=== PATIENT | male | born 1960 | race Caucasian/White ===

== ENCOUNTER 2021-08-01 10:50 | Outpatient (REF) | payer OTHER, SELFPAY ==
--- NOTE | ~2021-08-01 | XR_ITS ---
EXAMINATION: XR chest 2V CLINICAL INFORMATION: Reason for Exam R05.9 - Cough, unspecified COMPARISON: No prior chest x-ray available in our system for comparison at the time of this dictation. TECHNIQUE: XR chest 2V Lungs and Yaritza: Both lungs are clear. Pleura: Normal. Costophrenic angles are sharp. No pneumothorax. Heart: The heart is normal in size. Mediastinum: The mediastinum is within normal limits.. Bones: Skeletal structures included are normal for patient's age. XR/XR chest 2V IMPRESSION: Normal chest x-ray.
[2021-08-01 13:25] LABS: Influenza A PCR NEGATIVE (Negative); Influenza B PCR NEGATIVE (Negative); Resp Syncy Virus RNA Qual PCR NEGATIVE (Negative); SARS COV2 PCR INHOUSE POSITIVE (Negative)
== END 2021-08-01 10:51 | disposition home or self-care (01) ==
LOC: HO.HMGCX 10:50
PROVIDERS: PCP Nurse Practitioner Family; Visit Provider Physician Assistant Medical
DX: R05.9 Cough, unspecified (principal); Z20.822 Contact with and (suspected) exposure to COVID-19
CPT/HCPCS: 0241U; 71046

== ENCOUNTER 2021-11-27 08:36 | Outpatient (REF) | payer OTHER, SELFPAY ==
[2021-11-27 11:22] LABS: MANUAL DIFF FLAG NO
[2021-11-27 11:38] LABS: Basophils Percent Auto 0.8 % (0-2); Eosinophils Absolute Auto 0.2 X10*3/uL (0.0-0.4); Eosinophils Percent Auto 4.1 % (0-4); Hemoglobin 14.1 g/dl (14.0-18.0); Imm Gran Abs Auto 0.01 X10*3/uL (0.00-0.03); Imm Gran Pct Auto 0.2 % (0.0-0.4); Lymphocytes Absolute Auto 1.4 X10*3/uL (1.2-4.9); Lymphocytes Percent Auto 29.2 % (20-40); Mean Corpuscular HGB Conc 33.6 g/dl (31.0-36.0); Mean Corpuscular Hemoglobin 29.9 pg (27.0-33.0); Mean Platelet Volume 9.8 fL (9.4-12.4); Monocytes Absolute Auto 0.7 X10*3/uL (0.1-1.2); Monocytes Percent Auto 13.5 % (2-11); Neutrophils Absolute Auto 2.6 x10*3/uL (2.0-8.3); Neutrophils Percent Auto 52.2 % (45-73); Platelet Count 198 X10*3/uL (160-400); Red Blood Count 4.72 X10*6/uL (4.60-5.80); Red Cell Distribution Width 12.2 % (11.0-16.0); White Blood Count 4.9 X10*3/uL (4.8-10.8)
[2021-11-27 12:29] LABS: Appearance Urine CLEAR; Color Urine YELLOW; Glucose Urine UA NEG (NEG); Leukocyte Esterase Urine NEG (NEG); Nitrite Urine NEG (NEG); PH 6.5 (5.0-8.0); Urine Blood NEG (NEG); Urine Ketones NEG (NEG); Urine Protein NEG (NEG-TRACE)
[2021-11-27 12:48] LABS: Alanine Aminotransferase 23 U/L (0-40); Alkaline Phosphatase 64 U/L (39-117); Anion Gap 9 (12-20); Aspartate Amino Transferase 21 U/L (5-37); Bilirubin Total 0.8 mg/dL (0.0-1.0); Blood Urea Nitrogen 19 mg/dL (9-16); Carbon Dioxide 29 mmol/L (22-29); Chloride 104 mmol/L (96-108); Cholesterol 198 mg/dL; Estimated Glomerular Filt Rate > 60; Glucose Fasting 92 mg/dL (60-99); HDL Cholesterol 91 mg/dL; LDL Cholesterol Calculated 101 mg/dl; Potassium 4.3 mmol/L (3.3-5.1); Sodium 138 mmol/L (135-145); TSH reflex Free T4 1.26 uIU/mL (0.32-4.0); Total Protein 6.5 g/dL (6.5-8.0); Triglycerides 34 mg/dL
[2021-12-02 13:41] LABS: Testosterone, Total 651 ng/dL (250-1100)
== END 2021-11-27 08:37 | disposition home or self-care (01) ==
LOC: HO.HMGCLDS 08:36
PROVIDERS: Visit Provider Nurse Practitioner Family
DX: Z00.00 Encounter for general adult medical examination without abnormal findings (principal); Z13.220 Encounter for screening for lipoid disorders; Z13.29 Encounter for screening for other suspected endocrine disorder; Z12.5 Encounter for screening for malignant neoplasm of prostate
CPT/HCPCS: 36415; 80053; 80061; 81003; 84153; 84403; 84443; 85025

== ENCOUNTER → 2022-04-16 10:31 | Outpatient (BNVA) | payer OTHER, SELFPAY | PROVIDERS: PCP Nurse Practitioner Family; Visit Provider Nurse Practitioner | DX: Z01.818 Encounter for other preprocedural examination (principal) | CPT/HCPCS: 99202 ==

== ENCOUNTER → 2022-12-18 15:11 | Outpatient (BNVA) | payer OTHER, SELFPAY | PROVIDERS: PCP Nurse Practitioner Family; Visit Provider Urology | DX: N52.2 Drug-induced erectile dysfunction (principal); T43.295A Adverse effect of other antidepressants, initial encounter; T43.595A Adverse effect of other antipsychotics and neuroleptics, initial encounter; F98.8 Other specified behavioral and emotional disorders with onset usually occurring in childhood and adolescence; F31.9 Bipolar disorder, unspecified; Z79.899 Other long term (current) drug therapy | CPT/HCPCS: 99202 ==

== ENCOUNTER 2023-03-05 13:10 | Outpatient (AMB) | payer OTHER, SELFPAY ==
--- NOTE | 2023-03-05 13:24 | A.OFFVIS_ITS ---
Intake Intake Visit Reasons: 2m follow up Intake Note: Patient is present for Follow Up Urology Med:Sildenafil, Tadalafil Antibiotic Allergy:none Blood Thinner: none Pharmacy: [facility] Allergies No Known Allergies Allergy (Verified 12/18/22 15:19) Medication List - Last Reconciled 04/22/23 by Vicente Salagdo MD bupropion HCl 100 mg PO QAM erythromycin 0.5 inches ophthalmic (eye) TID PRN lamotrigine 200 mg PO DAILY peg 3350-electrolytes 236-22.74-6.74 -5.86 gram (Golytely) 240 mL PO Q10M 1 day quetiapine 200 mg PO DAILY sildenafil 50 mg PO DAILY PRN 10 days tadalafil 20 mg PO ONCE PRN 30 days HPI HPI Comments History of Present Illness Details Kristofer is a pleasant male. He is a patient of Dr. Martin. He is seen for the following urologic conditions - erectile dysfunction Good response to on demand medications Erectile dysfunction Progressive over last few years Correlated with starting bipolar medications - bupropion, lamotrigine, Seroquel Good response to on demand Cialis Minimal cardiovascular risk factors - testosterone 650, cholesterol 200, triglycerides 34, HDL 90, cholesterol 100 Six month tele follow-up [facility] Medical History ADD (attention deficit disorder) Bipolar 1 disorder History of COVID-19 Surgical History H/O bilateral inguinal hernia repair H/O colonoscopy History of ear surgery Family History Father Mental health disorder Social History Housing: Apartment Patient Tobacco Use Status: Never used Tobacco e-Cigarette/Vaping Use: Never Used Second Hand Smoke Exposure: No service: No Current occupational status: employed Current occupation: [employer] Current occupational exposures/hazards: No Cognitive needs: No Hearing needs: No Vision needs: No Review of Systems Const Denies chills and Denies fever(s) Card Reports no additional complaints and Denies syncope Resp Denies cough GI Denies abdominal pain and Denies heartburn Reports as per HPI and Denies change in libido Neuro Denies syncope Psych Denies change in libido Endo Denies change in libido Physical Exam Const General: cooperative, healthy appearing, comfortable and no acute distress Orientation/consciousness: patient oriented x3 HEENT Face and sinus: Yes normal facial exam Mouth: moist mucous membranes Neck Neck: Yes normal visual inspection, Yes full ROM and Yes trachea midline Chest Chest palpation & inspection: normal inspection of the chest Resp Effort & Inspection: normal respiratory effort, able to speak in complete sentences and no respiratory distress GI Inspection: Yes normal to inspection Back/Spine/Pelvis Cervical Spine: normal cervical lordosis Thoracic/Lumbar Spine: thoracic and lumbar spine normal to inspection Skin General skin exam: no rashes or lesions noted Neuro General: patient oriented x3, gait normal, tone normal and moves all extremities Extrem General: Yes normal to inspection and Yes capillary refill normal Assessment & Plan Assessment & Plan (1) Erectile dysfunction: Code(s): N52.9 - Male erectile dysfunction, unspecified Qualifiers: Erectile dysfunction type: vasculogenic Vasculogenic erectile dysfunction type: due to arterial insufficiency Qualified Code(s): N52.01 - Erectile dysfunction due to arterial insufficiency Plan Six month follow-up Patient Instructions: Imaging studies, laboratory and physical exam results were discussed and reviewed in detail. No major barriers to patient understanding were identified. An opportunity to ask questions regarding the treatment plan was provided. All questions were answered. The patient expressed understanding and agreement with the above treatment plan. The patient is aware they should contact our office by phone for worsening of their current condition or the appearance of new urologic symptoms. Compliance is encouraged with any medications and followup testing that is ordered. It is a privilege to participate in the urologic care of your patient. If you have any questions or concerns regarding treatment for the above conditions, or other urologic issues, please do not hesitate to contact me. The office telephone contact is [phone]. This note is constructed using voice recognition software. While every effort has been made to ensure accuracy optical instrument assembly supervisor errors may have been included. Yours sincerely, Dr Vicente Salgado MD, [facility] - Urology Providers of Expert, Compassionate Care for the Genitourinary System Coding Level of Care Code Est Pt Level 3 (04108) Diagnoses Erectile dysfunction due to arterial insufficiency N52.01 Erectile dysfunction type: vasculogenic Vasculogenic erectile dysfunction type: due to arterial insufficiency
== END 2023-03-05 13:58 | disposition home or self-care (01) ==
PROVIDERS: Visit Provider Urology
DX: N52.01 Erectile dysfunction due to arterial insufficiency (principal)
CPT/HCPCS: 99213

== ENCOUNTER → 2023-03-05 13:10 | Outpatient (BNVA) | payer OTHER, SELFPAY | PROVIDERS: Visit Provider Urology | DX: N52.2 Drug-induced erectile dysfunction (principal); F31.9 Bipolar disorder, unspecified; F98.8 Other specified behavioral and emotional disorders with onset usually occurring in childhood and adolescence; Z79.899 Other long term (current) drug therapy | CPT/HCPCS: 99212 ==

== ENCOUNTER 2023-09-03 13:50 | Outpatient (AMB) | payer OTHER, SELFPAY ==
--- NOTE | 2023-09-03 13:53 | MHC.OFFVIS ---
Intake Intake Visit Reasons: 6M Follow Up(Erectile Dys) Intake Note: Patient is Present for Telephone Follow Up Urology Med: Patient states that he is not taking both Tadalafil and Sildenafil Antibiotic Allergy: None Blood Thinner: None Allergies No Known Allergies Allergy (Verified 09/03/23 13:53) HPI HPI Comments History of Present Illness Details Kristofer is a pleasant male. He is a patient of Dr. Martin. He is seen for the following urologic conditions - erectile dysfunction Telemedicine Evaluation 15 min Consultation [employer] Adi Video attempted Good response to on demand medications Continue Erectile dysfunction Progressive over last few years Correlated with starting bipolar medications - bupropion, lamotrigine, Seroquel Good response to on demand Cialis Minimal cardiovascular risk factors - testosterone 650, cholesterol 200, triglycerides 34, HDL 90, cholesterol 100 Six month tele follow-up [facility] Medical History History of COVID-19 ADD (attention deficit disorder) Bipolar 1 disorder Surgical History History of ear surgery H/O bilateral inguinal hernia repair H/O colonoscopy Family History Father Mental health disorder Social History Housing: Apartment Patient Tobacco Use Status: Never used Tobacco e-Cigarette/Vaping Use: Never Used Second Hand Smoke Exposure: No service: No Current occupational status: employed Current occupation: speacialized ev Current occupational exposures/hazards: No Cognitive needs: No Hearing needs: No Vision needs: No Review of Systems Const All systems reviewed & are unremarkable except as noted in HPI and below Reports no additional complaints Resp Reports no additional complaints GI Reports no additional complaints Reports as per HPI Musc Reports no additional complaints Physical Exam Telemedicine evaluation Appropriate responses Regular breathing rate and rhythm HEENT Head: Yes normal to inspection Ears: hearing grossly normal bilaterally Eyes General: appearance normal, both eyes and all related structures Neck Neck: Yes normal visual inspection Chest Chest palpation & inspection: normal inspection of the chest Resp Effort & Inspection: normal respiratory effort and able to speak in complete sentences Assessment & Plan Assessment & Plan (1) Erectile dysfunction: Code(s): N52.9 - Male erectile dysfunction, unspecified Qualifiers: Erectile dysfunction type: vasculogenic Vasculogenic erectile dysfunction type: due to arterial insufficiency Qualified Code(s): N52.01 - Erectile dysfunction due to arterial insufficiency Plan Twelve month follow-up Patient Instructions: Imaging studies, laboratory and physical exam results were discussed and reviewed in detail. No major barriers to patient understanding were identified. An opportunity to ask questions regarding the treatment plan was provided. All questions were answered. The patient expressed understanding and agreement with the above treatment plan. The patient is aware they should contact our office by phone for worsening of their current condition or the appearance of new urologic symptoms. Compliance is encouraged with any medications and followup testing that is ordered. It is a privilege to participate in the urologic care of your patient. If you have any questions or concerns regarding treatment for the above conditions, or other urologic issues, please do not hesitate to contact me. The office telephone contact is [phone]. This note is constructed using voice recognition software. While every effort has been made to ensure accuracy dental intern errors may have been included. Yours sincerely, Dr Vicente Salgado MD, [facility] - Urology Providers of Expert, Compassionate Care for the Genitourinary System Telehealth Telehealth Location of provider rendering services: practice address Location of patient: address on file Patient Identification confirmed using: Name, : Yes Telehealth method: video Patient verbally consented to treatment: Yes Patient verbally consented to billing insurance company: Yes Patient informed of any privacy concerns related to visit: Yes Coding Level of Care Code Tele Est Pt Level 3 (58088) Diagnoses Erectile dysfunction due to arterial insufficiency N52.01 Erectile dysfunction type: vasculogenic Vasculogenic erectile dysfunction type: due to arterial insufficiency
== END 2023-09-03 14:29 | disposition home or self-care (01) ==
LOC: HO.HUSH 13:50
PROVIDERS: PCP Nurse Practitioner Family; Visit Provider Urology
DX: N52.01 Erectile dysfunction due to arterial insufficiency (principal)
CPT/HCPCS: 99213

== ENCOUNTER → 2023-09-03 13:50 | Outpatient (BNVA) | payer OTHER, SELFPAY | PROVIDERS: PCP Nurse Practitioner Family; Visit Provider Urology ==

== ENCOUNTER 2024-05-04 14:58 | Outpatient (AMB) | payer OTHER, SELFPAY ==
[2024-05-04 15:01] VITALS: BP 136/80; PULSE 92; O2SAT 95; BMI 25.5
--- NOTE | 2024-05-04 15:01 | A.OFFPC_ITS ---
Vital Signs 05/04/24 15:01 Height 6 ft 1 in Weight 193 lb BMI 25.5 BP 136/80 Blood Pressure Location Lt brachial Position Sitting Pulse 92 Pulse Source Pulse Oximeter Pulse Oximetry (%) 95 Intake Visit Reasons: annual PE Intake Note: pt is here for annual exam Warehouse Analyst Required: No Accompanied by: Self / Same As Patient Allergies No Known Allergies Allergy (Verified 05/04/24 17:05) Medication List - Last Reconciled 05/04/24 by MARLON Ojeda bupropion HCl SR 100 mg PO QAM ketoconazole 2% 1 appl topical DAILY lamotrigine 200 mg PO DAILY quetiapine 200 mg PO DAILY sildenafil 50 mg PO DAILY PRN 10 days tadalafil 20 mg PO ONCE PRN 30 days Tobacco use date assessed: 05/04/24 Dental Screening Dental Screen Date: 05/04/24 Did you have a dental visit in the last 12 months?: Yes Did you have a dental problem in the last 6 months where you did not have access to dental care?: No Was dental information given to patient?: Patient has dentist HPI annual PE HPI Details Pt is here for a PE. Will order labs. Due for colon screen, will refer to GI. Due for PSA, will order. Denies dribbling with urination, weak stream, and frequent nocturia. Pt follows up with urology due to ED. Pt has a possible hydrocele to his right scrotum??. His right testicle is enlarged. Will order US. Refused ANDER. [facility] Medical History History of COVID-19 ADD (attention deficit disorder) Bipolar 1 disorder Surgical History History of ear surgery H/O bilateral inguinal hernia repair H/O colonoscopy Family History Father Mental health disorder Social History Housing: Apartment Patient Tobacco Use Status: Never used Tobacco e-Cigarette/Vaping Use: Never Used Second Hand Smoke Exposure: No service: No Current occupational status: employed Current occupation: speacialized ev Current occupational exposures/hazards: No Cognitive needs: No Hearing needs: No Vision needs: No Questionnaire PHQ-9 Over the last 2 weeks, how often have you been bothered by any of the following problems? 1. Little interest or pleasure in doing things: not at all 2. Feeling down, depressed, or hopeless: not at all 3. Trouble falling or staying asleep, or sleeping too much: not at all 4. Feeling tired or having little energy: not at all 5. Poor appetite or overeating: not at all 6. Feeling bad about yourself - or that you are a failure or have let yourself or your family down: not at all 7. Trouble concentrating on things, such as reading the newspaper or watching television: not at all 8. Moving or speaking so slowly that other people could have noticed. Or the opposite - being so fidgety or restless that you have been moving around a lot more than usual: not at all 9. Thoughts that you would be better off or of hurting yourself in some way: not at all Total score: 0 Depression Screening Interpretation: Negative Depression Screening Done: Yes 67526 - PHQ-9 Billing: Yes Source: Developed by Drs. Shad Oakes, Ariana Aquino, Rafi Bird and colleagues, with an educational bing from [employer]. Thrive Questionnaire Date Thrive assessed: 05/04/24 I am a: Patient What is your living situation today?: I have a steady place to live Within the past 12 months, did the food you bought not last and you didn't have the money to get more?: Never true Within the past 12 months, did you worry whether your food would run out before you got money to buy more?: Never true Do you have trouble paying for medicines?: No Do you have trouble getting transportation to medical appointments?: No Do you have trouble paying your heating and electricity bill?: No Do you have trouble taking care of your child, family member or friend?: No Do you have trouble with day-to-day activities such as bathing, preparing meals, shopping, managing finances, etc.?: No Are you currently unemployed and looking for a job?: No Are you interested in more education?: No Please select the resources that you would like help with: None Currently or been in a relationship where the following occur: No concerns reported THRIVE Score: 0 AUDIT C Alcohol Use Questionnaire (AUDIT-C) 1. How often do you have a drink containing alcohol?: Monthly or less 2. How many drinks containing alcohol do you have on a typical day when you are drinking?: 1 or 2 Total Score: 1 Score Reviewed/Action Taken: Yes GARRETT-7 AMB Questionnaire GARRETT-7 Date GARRETT - 7 assessed: 05/04/24 Feeling nervous, anxious, or on edge: 0 = Not at all Not being able to stop or control worryin = Not at all Worrying too much about different things: 0 = Not at all Trouble relaxin = Not at all Being so restless that it is hard to sit still: 0 = Not at all Becoming easily annoyed or irritable: 0 = Not at all Feeling afraid as if something awful might happen: 0 = Not at all Total GARRETT-7 score (0-4 normal; 5-9 mild; 10-14 moderate; 15-21 severe): 0 Source: Developed by Drs. Shad Oakes, Ariana Aquino, Rafi Bird and colleagues, with an educational bing from [employer]. GARRETT-7 Assessment Billing GARRETT-7 Assessment Tool: GARRETT-7 Assessment 90654 Review of Systems Const Denies chills and Denies fever(s) Eyes Denies blurry vision ENT Denies vertigo, Denies dizziness and Denies sore throat Card Denies chest pain at rest, Denies chest pain with activity, Denies diaphoresis, Denies dyspnea and Denies dyspnea on exertion Resp Denies cough, Denies dyspnea, Denies dyspnea on exertion and Denies wheezing GI Denies abdominal pain, Denies melena, Denies hematochezia, Denies constipation, Denies diarrhea and Denies loose stools Denies hematuria Musc Denies numbness and Denies tingling Skin/Breast Denies lesions Neuro Denies vertigo, Denies dizziness, Denies numbness and Denies tingling Psych Denies anxiety, Denies depression, Denies homicidal ideation, Denies suicidal ideation and Denies other (substance abuse) Aller/Immun Denies wheezing Physical exam (Primary Care) Vital Signs: Last Vital Signs Pulse 92 05/04/24 15:01 BP 136/80 05/04/24 15:01 Pulse Ox 95 05/04/24 15:01 BMI result Body Mass Index 25.5 Tobacco/Smoking Status: Tobacco use Status Tobacco use date assessed 05/04/24 05/04/24 15:02 Patient Tobacco Use Status Never used Tobacco 05/04/24 15:01 e-Cigarette/Vaping Use Never Used 05/04/24 15:01 PHQ-9: PHQ-9 Score PHQ-9: Total score 0 05/04/24 15:02 Depression Screening Interpretation: Negative Thrive Assessment: Date of Thrive Assessment Date Thrive assessed 05/04/24 05/04/24 15:02 Currently or been in a relationship where the following occur: No concerns reported Const General: cooperative Nutritional Appearance: well nourished Orientation/consciousness: patient oriented x3 HENMT Head: Yes normal to inspection, Yes normocephalic and Yes atraumatic Ears: TM's normal bilaterally Eyes General: appearance normal, both eyes and all related structures Alignment and Position: alignment normal and position normal Neck Neck: Yes normal visual inspection, Yes no lymphadenopathy and Yes supple Resp Effort & Inspection: normal respiratory effort Auscultation: clear to auscultation bilaterally Cardio Rate: regular rate Rhythm: regular rhythm Heart sounds: S1 normal heart sound present, S2 normal heart sound present and no murmurs GI Palpation (GI): Soft to palpation and nontender Auscultation: normal bowel sounds Other: right scrotum with ? hydrocele, enlarged right testicle Male General Exam: Yes normal external exam Penis: normal penis Scrotum: testes descended bilaterally and no inguinal hernias Testes: no testicular mass Skin Other: whitich, circular, macular lesions throughout upper chest and upper back/neck (TINEA) Neuro General: patient oriented x3, moves all extremities, no focal motor deficits and deep tendon reflexes 2+ bilaterally Romberg Test: Negative Psych Appearance: grossly normal Mental Status: mental status grossly normal Speech and movement: Normal speech and movement present Affect: normal affect Attitude: cooperative Thought process: Normal thought process present Thought content: Normal thought content present Insight: Good insight present (Psych) Judgement: Good judgement present (Psych) Coding Level of Care Code Est Pt Prev Care 40-64y(28000) Diagnoses Physical exam Z00.00 Screening PSA (prostate specific antigen) Z12.5 Screening for colon cancer Z12.11 Scrotal swelling N50.89 Tinea B35.9 Additional Codes GARRETT-7 Assessment Billing - GARRETT-7 Assessment Tool: GARRETT-7 Assessment 86706 ([id number]) Assessment & Plan Assessment & Plan (1) Physical exam: Code(s): Z00.00 - Encounter for general adult medical examination without abnormal findings Category: Medical Plan: Labs ordered (2) Screening PSA (prostate specific antigen): Code(s): Z12.5 - Encounter for screening for malignant neoplasm of prostate Category: Medical Plan: PSA ordered (3) Screening for colon cancer: Code(s): Z12.11 - Encounter for screening for malignant neoplasm of colon Category: Medical Plan: Referred to GI (4) Scrotal swelling: Code(s): N50.89 - Other specified disorders of the male genital organs Category: Medical Plan: US ordered (5) Tinea: Code(s): B35.9 - Dermatophytosis, unspecified Category: Medical Plan: cream sent Plan The patient agreed to the use of a medical office supervisor for this encounter. Scribed for TIMI Avilez-BC by Shanique Malik medical office supervisor, on 05/04/2024 at 15:15 EST. Orders: Orders Prostate Specific Antigen Scr Today Z12.5 - Encounter for screening for malignant neoplasm of prostate US scrotum Today N50.89 - Other specified disorders of the male genital organs Complete Blood Count Auto Diff Today Z00.00 - Encounter for general adult medical examination without abnormal findings Comprehensive [place]. Panel Fast Today Z00.00 - Encounter for general adult medical examination without abnormal findings TSH reflex Free T4 Today Z00.00 - Encounter for general adult medical examination without abnormal findings UA CC w/rflx Micro + Cult Today Z00.00 - Encounter for general adult medical examination without abnormal findings Lipid Panel Today Z00.00 - Encounter for general adult medical examination without abnormal findings Referrals Gastroenterology Referral Z12.11 - Encounter for screening for malignant neoplasm of colon Medications: New ketoconazole 2% 1 appl topical DAILY 60 grams 0RF
== END 2024-05-04 17:03 | disposition home or self-care (01) ==
PROVIDERS: PCP Nurse Practitioner Family; Visit Provider Nurse Practitioner Family
DX: Z00.00 Encounter for general adult medical examination without abnormal findings (principal); Z12.5 Encounter for screening for malignant neoplasm of prostate; Z12.11 Encounter for screening for malignant neoplasm of colon; N50.89 Other specified disorders of the male genital organs; B35.9 Dermatophytosis, unspecified

== ENCOUNTER → 2024-05-04 14:58 | Outpatient (BNVA) | payer OTHER, SELFPAY | PROVIDERS: PCP Nurse Practitioner Family; Visit Provider Nurse Practitioner Family | DX: Z00.01 Encounter for general adult medical examination with abnormal findings (principal); N50.89 Other specified disorders of the male genital organs; B35.9 Dermatophytosis, unspecified | CPT/HCPCS: 96127; 99396 ==

== ENCOUNTER 2024-05-18 13:49 | Outpatient (REF) | payer OTHER, SELFPAY ==
--- NOTE | ~2024-05-18 | US_ITS ---
EXAMINATION: US SCROTUM CLINICAL INFORMATION: Scrotal swelling. COMPARISON: None available. TECHNIQUE: A sonogram of the scrotum was performed assessing lozoya-scale appearance and color Doppler flow. Spectral Doppler analysis of the arterial and venous flow were performed in the testes bilaterally. FINDINGS: RIGHT: Right testicle measures 3.6 x 2.8 x 3.2 cm, volume 17.0 mL. No focal testicular parenchymal lesions are visualized. Spectral Doppler analysis of the arterial and venous flow is normal in the right testis. Right epididymal head is normal in size. No right varicocele is seen. A large right-sided hydrocele is present with debris. Right epididymal Doppler flow is normal. LEFT: Left testicle measures 4.0 x 2.8 x 2.9 cm, volume 16.7 mL. No focal testicular parenchymal lesions are visualized. Spectral Doppler analysis of the arterial and venous flow is normal in the left testis. Left epididymal head is normal in size. No left varicocele is seen. A large left-sided hydrocele is present with debris. Left epididymal Doppler flow is normal. US/US scrotum IMPRESSION: Large bilateral hydroceles with debris. Normal-appearing testes. Electronically signed by: Anton Kurtz MD 07/15/2024 10:07 AM [facility]
== END 2024-05-18 13:50 | disposition home or self-care (01) ==
LOC: HO.HMGCX 13:49
PROVIDERS: PCP Nurse Practitioner Family; Visit Provider Nurse Practitioner Family
DX: N50.89 Other specified disorders of the male genital organs (principal); S83.412A Sprain of medial collateral ligament of left knee, initial encounter
CPT/HCPCS: 76870; 99212

== ENCOUNTER 2024-05-18 14:22 | Outpatient (AMB) | payer OTHER, SELFPAY ==
--- NOTE | 2024-05-18 14:53 | MHC.OFFWIV ---
Intake Vital Signs 05/18/24 14:54 Height 6 ft 1 in Weight 195 lb BMI 25.7 BP 130/90 H Blood Pressure Location Lt brachial Position Sitting Pulse 75 Pulse Source Pulse Oximeter Pulse Oximetry (%) 98 Oxygen Delivery Method Room Air Intake Visit Reasons: EP-lt knee pain Intake Note: Patient here for left knee pain, he states he jumped off the truck dock and heard a crack. Patient Tobacco Use Status: Never used Tobacco Allergies No Known Allergies Allergy (Verified 05/18/24 14:55) Do you need a note to return to daycare/school/sports/work: No HPI HPI Comments History of Present Illness Details Patient is a 64-year-old male complaining of left medial knee pain. He tells me that 2 days ago, he jumped off the back of a loading dock and heard a crack. He states it does feel dramatically better and he has full range of motion but it still hurts in the medial side of his left knee. He denies any numbness or tingling or loss of strength in the leg. [facility] Medical History History of COVID-19 ADD (attention deficit disorder) Bipolar 1 disorder Surgical History History of ear surgery H/O bilateral inguinal hernia repair H/O colonoscopy Family History Father Mental health disorder Social History Housing: Apartment Patient Tobacco Use Status: Never used Tobacco e-Cigarette/Vaping Use: Never Used Second Hand Smoke Exposure: No service: No Current occupational status: employed Current occupation: speacialized ev Current occupational exposures/hazards: No Cognitive needs: No Hearing needs: No Vision needs: No Review of Systems Const All systems reviewed & are unremarkable except as noted in HPI and below Physical Exam Vital Signs: Last Vital Signs Pulse 75 05/18/24 14:54 BP 130/90 H 05/18/24 14:54 Pulse Ox 98 05/18/24 14:54 Oxygen Delivery Method Room Air 05/18/24 14:54 BMI result Body Mass Index 25.7 Const General: cooperative, healthy appearing, comfortable and no acute distress Orientation/consciousness: patient oriented x3 Limitations: no limitations HEENT Head: Yes normal to inspection Resp Effort & Inspection: normal respiratory effort and able to speak in complete sentences Neuro General: patient oriented x3 Extrem Left lower extremity: knee Details: tenderness Location: of the medial joint line, swelling (medial joint line, slight swelling), normal ROM and knee ligament exam normal; no abrasions, no lacerations, no ecchymosis, no crepitus, no deformity and no unusual warmth Assessment & Plan Assessment & Plan (1) Knee MCL sprain: Code(s): S83.419A - Sprain of medial collateral ligament of unspecified knee, initial encounter Qualifiers: Encounter type: initial encounter Laterality: left Qualified Code(s): S83.412A - Sprain of medial collateral ligament of left knee, initial encounter Plan: Please wrapped knee for patient, recommended he use that as much as possible for the next couple of weeks. Recommended resting it and if it hurts, not to do whatever activity it is. Recommended using Aleve and ice. If no improvement in symptoms, he should follow up with his PCP. Plan See above Coding Level of Care Code Est Pt Level 3 (63699) Diagnoses Sprain of medial collateral ligament of left knee, initial encounter S83.412A Encounter type: initial encounter Laterality: left
[2024-05-18 14:54] VITALS: BP 130/90; PULSE 75; O2SAT 98; BMI 25.7
== END 2024-05-18 15:33 | disposition home or self-care (01) ==
PROVIDERS: PCP Nurse Practitioner Family; Visit Provider Physician Assistant
DX: S83.412A Sprain of medial collateral ligament of left knee, initial encounter (principal)

== ENCOUNTER 2024-05-31 15:03 | Outpatient (REF) | payer OTHER, SELFPAY ==
--- NOTE | ~2024-05-31 | XR_ITS ---
EXAMINATION: XR KNEE, LEFT CLINICAL INFORMATION: Knee pain COMPARISON: None available. TECHNIQUE: Four views of the left knee. FINDINGS: No fracture or joint effusion. Alignment is anatomic. Joint spaces are maintained. No abnormal soft tissue calcification. XR/XR knee LT 4V IMPRESSION: Unremarkable study. Electronically signed by: Fidencio Garcia MD 05/31/2024 04:50 PM EDT
== END 2024-05-31 15:04 | disposition home or self-care (01) ==
LOC: HO.HMGCX 15:03
PROVIDERS: PCP Nurse Practitioner Family; Visit Provider Physician Assistant
DX: M25.562 Pain in left knee (principal)
CPT/HCPCS: 73564; 99212

== ENCOUNTER 2024-05-31 15:03 | Outpatient (AMB) | payer OTHER, SELFPAY ==
[2024-05-31 15:05] VITALS: BP 130/90; PULSE 72; O2SAT 98
--- NOTE | 2024-05-31 15:05 | MHC.OFFWIV ---
Intake Vital Signs 05/31/24 15:05 Height 6 ft 1 in BP 130/90 H Blood Pressure Location Rt brachial Position Sitting Pulse 72 Pulse Source Pulse Oximeter Pulse Oximetry (%) 98 Oxygen Delivery Method Room Air Intake Visit Reasons: EP-lt knee pain / work injury Intake Note: pt is here for left knee pain, due to work injury Patient Tobacco Use Status: Never used Tobacco Allergies No Known Allergies Allergy (Verified 05/31/24 15:05) Do you need a note to return to daycare/school/sports/work: No HPI HPI Comments History of Present Illness Details Patient is a 64-year-old male complaining of continued left medial knee pain. Approximately 3 weeks ago, he jumped off the back of a loading dock and heard a crack in his knee. He has been trying to rest it, use ice, Ignacio wrap and ibupofen but it still feels the same, it's not getting better. He denies any numbness or tingling or loss of strength in the leg. [facility] Medical History History of COVID-19 ADD (attention deficit disorder) Bipolar 1 disorder Surgical History History of ear surgery H/O bilateral inguinal hernia repair H/O colonoscopy Family History Father Mental health disorder Social History Housing: Apartment Patient Tobacco Use Status: Never used Tobacco e-Cigarette/Vaping Use: Never Used Second Hand Smoke Exposure: No service: No Current occupational status: employed Current occupation: [employer] Current occupational exposures/hazards: No Cognitive needs: No Hearing needs: No Vision needs: No Review of Systems Const All systems reviewed & are unremarkable except as noted in HPI and below Physical Exam Vital Signs: Last Vital Signs Pulse 72 05/31/24 15:05 BP 130/90 H 05/31/24 15:05 Pulse Ox 98 05/31/24 15:05 Oxygen Delivery Method Room Air 05/31/24 15:05 Const General: cooperative, healthy appearing, comfortable and no acute distress Orientation/consciousness: patient oriented x3 Limitations: no limitations HEENT Head: Yes normal to inspection Resp Effort & Inspection: normal respiratory effort and able to speak in complete sentences Neuro General: patient oriented x3 Extrem Right lower extremity: knee Details: normal to inspection, tenderness Location: of the medial joint line, normal ROM and knee ligament exam normal; no swelling, no abrasions, no lacerations, no ecchymosis, no deformity and no unusual warmth Assessment & Plan Assessment & Plan (1) Knee pain, left: Code(s): M25.562 - Pain in left knee Qualifiers: Chronicity: acute Qualified Code(s): M25.562 - Pain in left knee Plan: Originally seen here in the walk-in and diagnosed with an MCL sprain. He has been doing everything we have asked him to do with rest ice and ibuprofen. He states it does not feel any better. We will get x-rays today and an urgent referral to Orthopedics so that he may be evaluated in the next couple of weeks. Plan See above Orders: Orders XR knee LT 4V Today M25.562 - Pain in left knee Referrals Orthopedics Referral M25.562 - Pain in left knee Coding Level of Care Code Est Pt Level 4 (68689) Diagnoses Acute pain of left knee M25.562 Chronicity: acute
== END 2024-05-31 15:58 | disposition home or self-care (01) ==
PROVIDERS: PCP Nurse Practitioner Family; Visit Provider Physician Assistant
DX: M25.562 Pain in left knee (principal)

== ENCOUNTER 2024-06-20 09:14 | Outpatient (REF) | payer OTHER, SELFPAY | END 2024-06-20 09:15 | disposition home or self-care (01) | LOC: HO.HOSX 09:14 | PROVIDERS: Visit Provider Physician Assistant | DX: M25.562 Pain in left knee (principal); S83.412A Sprain of medial collateral ligament of left knee, initial encounter; M23.92 Unspecified internal derangement of left knee | CPT/HCPCS: 73565; 99202 ==

== ENCOUNTER 2024-06-20 14:51 | Outpatient (AMB) | payer OTHER, SELFPAY ==
--- NOTE | 2024-06-20 14:57 | A.OFFVIS_ITS ---
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 He felt his knee shift and he fell on his back. Patient is having pain on the medial aspect of the knee. No hx of taking pain medication. He mentions that he tried icing, rest and a topical cream with mild relief. 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 The patient presented to [facility] at [place] for a left medial knee pain. The patient reports that he was pulling down the cargo door and twisted his knee falling backwards onto the loading dock. DOI is 05/16/24. His left knee was wrapped with KAYLYNN wrap and recommended to use the wrap as much as possible for a couple of weeks. The patient was recommended rest, Aleve and ice for pain relief. He returned to the Walk-In Clinic on 05/31/24. X-rays of the left knee were obtained on 05/31/24. He continues to report pain along the medial aspect of the knee that is persistent. [facility] Medical History History of COVID-19 ADD (attention deficit disorder) Bipolar 1 disorder Surgical History History of ear surgery H/O bilateral inguinal hernia repair H/O colonoscopy Family History Father Mental health disorder Social History Housing: Apartment Patient Tobacco Use Status: Never used Tobacco e-Cigarette/Vaping Use: Never Used Second Hand Smoke Exposure: No service: No Current occupational status: employed Current occupation: [employer] Current occupational exposures/hazards: No Cognitive needs: No Hearing needs: No Vision needs: No Review of Systems Const All systems reviewed & are unremarkable except as noted in HPI and below Physical Exam Const General: cooperative and no acute distress Orientation/consciousness: patient oriented x3 Resp Effort & Inspection: normal respiratory effort and able to speak in complete sentences Cardio Peripheral pulses: Peripheral pulses 2+ throughout Skin General skin exam: no rashes or lesions noted Neuro General: patient oriented x3 Extrem Other: Left knee: Normal to inspection. No ecchymosis, erythema, or joint effusion. No tenderness to palpation along the medial and lateral joint lines. Full knee extension and flexion. Positive Suzie?s in the medial joint line. Negative anterior drawer. NVI. Assessment & Plan Assessment & Plan (1) Internal derangement of left knee: Code(s): M23.92 - Unspecified internal derangement of left knee Category: Medical Plan 64-year-old female who presents in the office today, as a new patient, for an evaluation of left knee pain. The patient presented to [facility] at [place] for a left medial knee pain. The patient reports that he was pulling down the cargo door and twisted his knee falling backwards onto the loading dock. DOI is 05/16/24. His left knee was wrapped with KAYLYNN wrap and recommended to use the wrap as much as possible for a couple of weeks. The patient was recommended rest, Aleve and ice for pain relief. He returned to the Walk-In Clinic on 05/31/24. X-rays of the left knee were obtained on 05/31/24. He continues to report pain along the medial aspect of the knee that is persistent. I have placed an order for an MRI of the left knee to further evaluate the integrity of the knee and surrounding structures. Follow-up will be after the MRI is obtained, or sooner if needed. X-rays of the left knee, which were obtained while in the office today and were reviewed by me, Sammi Thapa PA-C, revealed: Negative for any acute fracture or dislocation. X-rays of the left knee, obtained on 05/31/24, revealed: No fracture or joint effusion. Alignment is anatomic. Joint spaces are maintained. No abnormal soft tissue calcification. Orders: Orders XR knee standing BI 06/20/24 M25.562 - Pain in left knee, S83.412A - Sprain of medial collateral ligament of left knee, initial encounter MR knee LT wo con Today M23.92 - Unspecified internal derangement of left knee Patient Instructions: Scribed by Heidi De Oliveira medical administrative specialist, for Sammi Thapa PA-C on 06/20/2024 at 3:24 pm EST. Coding Level of Care Code New Pt Level 4 (48103) Diagnoses Internal derangement of left knee M23.92
== END 2024-06-20 15:31 | disposition home or self-care (01) ==
PROVIDERS: PCP Nurse Practitioner Family; Visit Provider Physician Assistant
DX: M23.92 Unspecified internal derangement of left knee (principal)
CPT/HCPCS: 99204

== ENCOUNTER 2024-07-06 14:52 | Outpatient (REF) | payer OTHER, SELFPAY ==
--- NOTE | ~2024-07-06 | MR_ITS ---
EXAMINATION: MR KNEE WITHOUT CONTRAST, LEFT CLINICAL INFORMATION: Internal derangement of left knee. Patient reports pain post injury COMPARISON: None available. TECHNIQUE: MRI of the knee without contrast was performed using routine sequences on a high-field scanner. FINDINGS: MENISCI: Medial Meniscus: There is increased signal within the posterior horn and body meniscus not extending to the articular surface compatible with grade 2 signal. No definite tear. Lateral Meniscus: Intact LIGAMENTS: Cruciate: Intact Collateral: Medial collateral ligament: There is increased signal and thickening of the proximal medial collateral ligament beginning at the femoral attachment and extending to the joint line compatible with a partial tear. EXTENSOR MECHANISM: Intact ARTICULAR CARTILAGE/BONE: Patellofemoral Compartment: Normal Medial Compartment: Normal Lateral Compartment: Normal JOINT FLUID AND BURSAE: Normal MR/MR knee LT wo con IMPRESSION: Partial tear of the proximal medial collateral ligament likely acute or subacute. Electronically signed by: Rebel Jacques MD 07/06/2024 04:08 PM [facility]
== END 2024-07-06 14:53 | disposition home or self-care (01) ==
LOC: HO.MRI 14:52
PROVIDERS: Visit Provider Physician Assistant
DX: M23.92 Unspecified internal derangement of left knee (principal)
CPT/HCPCS: 73721

== ENCOUNTER 2024-07-24 08:29 | Outpatient (AMB) | payer OTHER, SELFPAY ==
--- NOTE | 2024-07-24 08:33 | A.OFFVIS_ITS ---
Intake Visit Reasons: Tele - Left knee MRI review Intake Note: Kristofer is a 64 year old male who presents today for a MRI review of his left knee. Patient states that hos pain hasn't change and it is still constant. Allergies No Known Allergies Allergy (Verified 07/24/24 08:40) HPI HPI Tele - Left knee MRI review: Details: 64-year-old male who presents in the office today for a follow-up of left knee pain and to review MRI of the left knee. The patient pulled down the cargo door and twisted his knee falling backwards onto the loading dock that occurred on 05/16/24. I last saw the patient in the office on 06/20/24, when an MRI of the left knee was ordered to further evaluate the integrity of the knee. While in the office today, the patient reports persistent left knee pain. He states no changes in his pain and has been constant. [facility] Medical History History of COVID-19 ADD (attention deficit disorder) Bipolar 1 disorder Surgical History History of ear surgery H/O bilateral inguinal hernia repair H/O colonoscopy Family History Father Mental health disorder Social History Housing: Apartment Patient Tobacco Use Status: Never used Tobacco e-Cigarette/Vaping Use: Never Used Second Hand Smoke Exposure: No service: No Current occupational status: employed Current occupation: [employer] Current occupational exposures/hazards: No Cognitive needs: No Hearing needs: No Vision needs: No Review of Systems Const All systems reviewed & are unremarkable except as noted in HPI and below Physical Exam Const General: cooperative, healthy appearing and no acute distress Orientation/consciousness: patient oriented x3 Resp Effort & Inspection: normal respiratory effort and able to speak in complete sentences Cardio Rate: regular rate Peripheral pulses: Peripheral pulses 2+ throughout GI Palpation (GI): Soft to palpation Skin General skin exam: no rashes or lesions noted Lesions: no lesions Rashes: no rashes Neuro General: patient oriented x3 Extrem Other: Left knee: Normal to inspection. No ecchymosis, erythema, or joint effusion. No tenderness to palpation along the medial and lateral joint lines. Full knee extension and flexion. Positive Suzie?s in the medial joint line. Negative anterior drawer. NVI. Assessment & Plan Assessment & Plan (1) Internal derangement of left knee: Code(s): M23.92 - Unspecified internal derangement of left knee Category: Medical (2) MCL sprain of left knee: Code(s): S83.412A - Sprain of medial collateral ligament of left knee, initial encounter Category: Medical Plan Ms. Dominguez is a 64-year-old male who presents in the office today for a follow- up of left knee pain and to review MRI of the left knee. The patient pulled down the cargo door and twisted his knee falling backwards onto the loading dock that occurred on 05/16/24. I last saw the patient in the office on 06/20/24, when an MRI of the left knee was ordered to further evaluate the integrity of the knee. While in the office today, the patient reports persistent left knee pain. He states no changes in his pain and has been constant. I have placed a referral to physical therapy today. He was provided with a work note, stating to remain out of work until his follow-up. I have sent the prescription of Celebrex 200 mg PO BID to the pharmacy. Follow-up will be in 4 weeks, or sooner if needed. MRI of the left knee, obtained on 07/06/24, revealed: Partial tear of the proximal medial collateral ligament likely acute or subacute. Orders: Orders PT Evaluation and Treatment 07/24/24 M23.92 - Unspecified internal derangement of left knee, M25.562 - Pain in left knee, S83.412A - Sprain of medial collateral ligament of left knee, initial encounter Medications: New celecoxib (Celebrex) 200 mg PO BID 30 days 60 caps 0RF Patient Instructions: Scribed by Heidi De Oliveira medical safety director, for Sammi Thapa PA-C on 07/24/24 at 9:01 am EST. Coding Level of Care Code Est Pt Level 4 (83621) Diagnoses Internal derangement of left knee M23.92 MCL sprain of left knee S83.412A
== END 2024-07-24 09:04 | disposition home or self-care (01) ==
PROVIDERS: PCP Nurse Practitioner Family; Visit Provider Physician Assistant
DX: M23.92 Unspecified internal derangement of left knee (principal); S83.412A Sprain of medial collateral ligament of left knee, initial encounter
CPT/HCPCS: 99214

== ENCOUNTER → 2024-07-24 08:29 | Outpatient (BNVA) | payer OTHER, SELFPAY | PROVIDERS: PCP Nurse Practitioner Family; Visit Provider Physician Assistant | DX: M23.92 Unspecified internal derangement of left knee (principal); S83.412A Sprain of medial collateral ligament of left knee, initial encounter; X50.3XXA Overexertion from repetitive movements, initial encounter; Y93.9 Activity, unspecified; Y92.63 Factory as the place of occurrence of the external cause; Y99.0 Civilian activity done for income or pay | CPT/HCPCS: 99212 ==

== ENCOUNTER 2024-08-24 12:22 | Outpatient (AMB) | payer OTHER, SELFPAY ==
--- NOTE | 2024-08-24 12:49 | A.OFFVIS_ITS ---
Vital Signs 08/24/24 12:51 Height 6 ft 1 in Weight 195 lb BMI 25.7 Intake Visit Reasons: OV-Left knee follow up 4 WK Intake Note: Kristofer is a 64 year old male who presents today for a follow up of his left knee pain. Patient states he is feeling better since he is going to PT. He notices that his medication is also giving him relief. Allergies No Known Allergies Allergy (Verified 07/24/24 08:40) HPI HPI OV-Left knee follow up 4 WK: Details: Patient presents to the office today for routine follow-up left knee pain and partial medial collateral ligament sprain. Patient is overall doing very well. He started physical therapy roughly 2 weeks ago. His pain has been improving. [facility] Medical History History of COVID-19 ADD (attention deficit disorder) Bipolar 1 disorder Surgical History History of ear surgery H/O bilateral inguinal hernia repair H/O colonoscopy Family History Father Mental health disorder Social History Housing: Apartment Patient Tobacco Use Status: Never used Tobacco e-Cigarette/Vaping Use: Never Used Second Hand Smoke Exposure: No service: No Current occupational status: employed Current occupation: [employer] Current occupational exposures/hazards: No Cognitive needs: No Hearing needs: No Vision needs: No Review of Systems Const All systems reviewed & are unremarkable except as noted in HPI and below Physical Exam Vital Signs: BMI result Body Mass Index 25.7 Const General: cooperative, healthy appearing and no acute distress Orientation/consciousness: patient oriented x3 Resp Effort & Inspection: normal respiratory effort and able to speak in complete sentences Cardio Rate: regular rate Peripheral pulses: Peripheral pulses 2+ throughout GI Palpation (GI): Soft to palpation Skin General skin exam: no rashes or lesions noted Lesions: no lesions Rashes: no rashes Neuro General: patient oriented x3 Extrem Other: Left knee: Normal to inspection. No ecchymosis, erythema, or joint effusion. Full knee extension and flexion. Tenderness to palpation over the MCL. NVI. Assessment & Plan Assessment & Plan (1) Knee MCL sprain: Code(s): S83.419A - Sprain of medial collateral ligament of unspecified knee, initial encounter Category: Medical Qualifiers: Encounter type: initial encounter Laterality: left Qualified Code(s): S83.412A - Sprain of medial collateral ligament of left knee, initial encounter (2) Internal derangement of left knee: Code(s): M23.92 - Unspecified internal derangement of left knee Category: Medical Plan Patient presents to the office today for routine follow-up left knee pain and partial medial collateral ligament sprain. Patient is overall doing very well. He started physical therapy roughly 2 weeks ago. His pain has been improving. Patient would like to resume pickleball activities. I provided him with a gentleman knee brace off the shelf. He was not back to normal activities as tolerated. He will continue to attend physical therapy until all sessions are completed. His follow up with Orthopedics will be p.r.n., sooner if needed. Coding Level of Care Code Est Pt Level 3 (36367) Diagnoses Sprain of medial collateral ligament of left knee, initial encounter S83.412A Encounter type: initial encounter Laterality: left Internal derangement of left knee M23.92
[2024-08-24 12:51] VITALS: BMI 25.7
== END 2024-08-24 14:32 | disposition home or self-care (01) ==
PROVIDERS: PCP Nurse Practitioner Family; Visit Provider Physician Assistant
DX: S83.412D Sprain of medial collateral ligament of left knee, subsequent encounter (principal); M23.92 Unspecified internal derangement of left knee
CPT/HCPCS: 99213

== ENCOUNTER → 2024-08-24 12:22 | Outpatient (BNVA) | payer OTHER, SELFPAY | PROVIDERS: PCP Nurse Practitioner Family; Visit Provider Physician Assistant | DX: S83.412D Sprain of medial collateral ligament of left knee, subsequent encounter (principal); M23.92 Unspecified internal derangement of left knee | CPT/HCPCS: 99212 ==

== ENCOUNTER 2024-10-20 13:30 | Outpatient (AMB) | payer OTHER, SELFPAY ==
--- NOTE | 2024-10-20 13:32 | A.OFFVIS_ITS ---
Intake Visit Reasons: OV- Left knee pain Intake Note: Kristofer is a 64 year old male who presents today for a follow up of his left knee pain. He feels that his pain has improved, he did a short period of physical therapy. They wanted to do more aggressive Physical Therapy & requested this order but he states that they never recieved anything. Allergies No Known Allergies Allergy (Verified 10/20/24 13:34) HPI HPI OV- Left knee pain: Details: Mr. Dominguez is a 64-year-old male who presents to the office today for routine follow-up of left knee pain. He is attending [facility] Physical therapy. He is performing home exercise program. He is looking to return back to work full- time regular duty. [facility] Medical History History of COVID-19 ADD (attention deficit disorder) Bipolar 1 disorder Surgical History History of ear surgery H/O bilateral inguinal hernia repair H/O colonoscopy Family History Father Mental health disorder Social History Housing: Apartment Patient Tobacco Use Status: Never used Tobacco e-Cigarette/Vaping Use: Never Used Second Hand Smoke Exposure: No service: No Current occupational status: employed Current occupation: [employer] Current occupational exposures/hazards: No Cognitive needs: No Hearing needs: No Vision needs: No Review of Systems Const All systems reviewed & are unremarkable except as noted in HPI and below Physical Exam Const General: cooperative, healthy appearing and no acute distress Orientation/consciousness: patient oriented x3 Resp Effort & Inspection: normal respiratory effort and able to speak in complete sentences Cardio Rate: regular rate Peripheral pulses: Peripheral pulses 2+ throughout GI Palpation (GI): Soft to palpation Skin General skin exam: no rashes or lesions noted Lesions: no lesions Rashes: no rashes Neuro General: patient oriented x3 Extrem Other: Left knee: Normal to inspection. No ecchymosis, erythema, or joint effusion. Full knee extension and flexion. Mild tenderness to palpation over the MCL. NVI. Assessment & Plan Assessment & Plan (1) MCL sprain of left knee: Code(s): S83.412A - Sprain of medial collateral ligament of left knee, initial encounter Category: Medical (2) Internal derangement of left knee: Code(s): M23.92 - Unspecified internal derangement of left knee Category: Medical Plan Mr. Dominguez is a 64-year-old male who presents to the office today for routine follow-up of left knee pain. He is attending [facility] Physical therapy. He is performing home exercise program. He is looking to return back to work full- time regular duty. A work note has been provided to the patient and he will follow up p.r.n., sooner if needed. Coding Level of Care Code Est Pt Level 3 (19885) Diagnoses MCL sprain of left knee S83.412A Internal derangement of left knee M23.92
== END 2024-10-20 13:41 | disposition home or self-care (01) ==
LOC: HO.HOS 13:31
PROVIDERS: PCP Nurse Practitioner Family; Visit Provider Physician Assistant
DX: S83.412A Sprain of medial collateral ligament of left knee, initial encounter (principal); M23.92 Unspecified internal derangement of left knee
CPT/HCPCS: 99213

== ENCOUNTER → 2024-10-20 13:30 | Outpatient (BNVA) | payer OTHER, SELFPAY | PROVIDERS: PCP Nurse Practitioner Family; Visit Provider Physician Assistant | DX: S83.412D Sprain of medial collateral ligament of left knee, subsequent encounter (principal); M23.92 Unspecified internal derangement of left knee; X58.XXXD Exposure to other specified factors, subsequent encounter | CPT/HCPCS: 99212 ==

== ENCOUNTER 2025-03-08 09:39 | Outpatient (AMB) | payer OTHER, SELFPAY ==
--- NOTE | 2025-03-08 09:44 | MHC.OFFVIS ---
Vital Signs 03/08/25 09:48 Height 6 ft 1 in Weight 190 lb 14.725 oz BMI 25.2 BP 122/80 Blood Pressure Location Rt brachial Position Sitting Pulse 67 Intake Visit Reasons: colo screen, pt had cxl his colo l/s 04/2022 Intake Note: Patient in office today for colonoscopy screenings. CC: Patient doing well denies having any GI symptoms today. 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 He is referred by Jone Orellana of [facility] primary care. PMX Attention deficit disorder/bipolar disorder Impotence Contact dermatitis * SURGICAL HISTORY bilateral inguinal hernia left knee cartiledge repair Wound debridment rt ear * ALLERGIES: NKDA * [facility] [employer] LABS: None since 2021 TODAY'S VISIT Patient has been lost to follow-up since 11/2021 He had a colonoscopy 10 years ago. There are no significant findings to his memory, he thinks he may have had done at [facility]. ? He denies any bowel or upper GI problems. ? 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 ? He denies any cardiac or respiratory problems ? No Id problems. ? No known FHX CRC . Or polyps. COUNTS INCLUDE 234 BEDS AT THE [facility] Medical History (Updated 03/08/25 @ 10:18 by ROSETTE Barber) Screening PSA (prostate specific antigen) Screening for colon cancer History of COVID-19 ADD (attention deficit disorder) Bipolar 1 disorder Surgical History History of ear surgery H/O bilateral inguinal hernia repair H/O colonoscopy Family History Father Mental health disorder Social History Housing: Apartment Patient Tobacco Use Status: Never used Tobacco e-Cigarette/Vaping Use: Never Used Second Hand Smoke Exposure: No service: No Current occupational status: employed Current occupation: [employer] Current occupational exposures/hazards: No Cognitive needs: No Hearing needs: No Vision needs: No Review of Systems Const Denies fatigue, Denies fever(s), Denies night sweats, Denies poor appetite and Denies weight loss Eyes Details: Glasses Reports requires corrective lenses ENT Reports Normal hearing present, Denies dental pain, Denies dysphagia, Denies hearing loss, Denies mouth pain, Denies odynophagia, Denies throat swelling, Denies tongue swelling and Reports other (Dentition adequate) Card Reports no additional complaints Resp Reports no additional complaints GI Details: Denies abdominal pain, Denies melena, Denies bloating, Denies hematochezia, Denies constipation, Denies GI cramping, Denies dysphagia, Denies excessive flatus, Denies early satiety, Denies heartburn, Denies diarrhea, Denies nausea, Denies odynophagia, Denies vomiting and Denies hematemesis Skin/Breast Denies pruritus, Denies lesions, Denies rash and Denies jaundice Neuro Reports Normal hearing present and Denies Abnormal speech present Endo Denies fatigue Aller/Immun Denies throat swelling and Denies tongue swelling Physical Exam Vital Signs: Last Vital Signs Pulse 67 03/08/25 09:48 BP 122/80 03/08/25 09:48 BMI result Body Mass Index 25.2 Const General: cooperative, no acute distress, well developed and well groomed Nutritional Appearance: well nourished Orientation/consciousness: oriented to person, oriented to place and oriented to time Limitations: No language barrier HEENT Head: Yes normocephalic and Yes atraumatic Eyes General: appearance normal, both eyes and all related structures Pupils: Equal, round and reactive pupils present Neck Neck: Yes normal visual inspection and Yes no lymphadenopathy Thyroid: Thyroid normal Resp Effort & Inspection: normal respiratory effort and able to speak in complete sentences Auscultation: clear to auscultation bilaterally Cardio Rate: regular rate Rhythm: regular rhythm Heart sounds: Normal, physiologic split S2 sound present Peripheral pulses: radial pulses present and posterior tibial pulses present GI Inspection: No distended and No Abdominal panniculus present Palpation (GI): Soft to palpation, nontender, no guarding, not rigid and No hepatosplenomegaly present Percussion: Yes normal to percussion Auscultation: normal bowel sounds Rectal Exam - Male: Yes deferred Skin General skin exam: no rashes or lesions noted, turgor normal, skin not dry, no jaundice, No spider nevi and no striae Rashes: no rashes Nails: normal Neuro General: oriented to person, oriented to place and oriented to time Cranial nerves: Yes Equal, round and reactive pupils present and Yes Normal hearing present Speech: No Abnormal speech present Extrem General: Yes normal to inspection, No clubbing, No cyanosis and No edema Psych Appearance: grossly normal and well kempt Mental Status: mental status grossly normal Speech and movement: Normal speech and movement present Affect: normal affect Attitude: cooperative Thought process: Normal thought process present and not confabulating Thought content: Normal thought content present Insight: Good insight present (Psych) Judgement: Good judgement present (Psych) Assessment & Plan Assessment & Plan (1) Pre-op examination: Code(s): Z01.818 - Encounter for other preprocedural examination Category: Medical (2) Transfusion of blood product declined due to scientology reason: Code(s): Z53.1 - Procedure and treatment not carried out because of patient's decision for reasons of belief and group pressure Category: Medical Plan Patient has been lost to follow-up since 11/2021 He had a colonoscopy 10 years ago. There are no significant findings to his memory, he thinks he may have had done at [facility]. ? He denies any bowel or upper GI problems. ? 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 ? He denies any cardiac or respiratory problems ? No Id problems. ? No known FHX CRC . Or polyps. Orders: Orders Comprehensive Met. Panel Today Z01.818 - Encounter for other preprocedural examination Complete Blood Count Auto Diff Today Z01.818 - Encounter for other preprocedural examination Colonoscopy - GI Use Only Today Z01.818 - Encounter for other preprocedural examination Coding Level of Care Code New Pt Level 3 (78496) Diagnoses Pre-op examination Z01.818 Transfusion of blood product declined due to scientology reason Z53.1
[2025-03-08 09:48] VITALS: BP 122/80; PULSE 67; BMI 25.2
== END 2025-03-08 10:24 | disposition home or self-care (01) ==
LOC: HO.HGI 09:39
PROVIDERS: PCP Nurse Practitioner Family; Visit Provider Nurse Practitioner
DX: Z01.818 Encounter for other preprocedural examination (principal); Z12.11 Encounter for screening for malignant neoplasm of colon; Z53.1 Procedure and treatment not carried out because of patient's decision for reasons of belief and group pressure
CPT/HCPCS: 99212

== ENCOUNTER → 2025-03-08 09:39 | Outpatient (BNVA) | payer OTHER, SELFPAY | PROVIDERS: PCP Nurse Practitioner Family; Visit Provider Nurse Practitioner | DX: Z01.818 Encounter for other preprocedural examination (principal) | CPT/HCPCS: 99212 ==

== ENCOUNTER 2025-03-19 09:33 | Outpatient (REF) | payer OTHER, SELFPAY ==
[2025-03-19 13:18] LABS: MANUAL DIFF FLAG NO
[2025-03-19 13:22] LABS: Hematocrit 40.4 % (42.0-52.0); Hemoglobin 13.9 g/dl (14.0-18.0); Imm Gran Abs Auto 0.01 X10*3/uL (0.00-0.03); Imm Gran Pct Auto 0.2 % (0.0-0.4); Lymphocytes Absolute Auto 1.3 X10*3/uL (1.2-4.9); Mean Corpuscular HGB Conc 34.4 g/dl (31.0-36.0); Mean Corpuscular Hemoglobin 30.7 pg (27.0-33.0); Mean Corpuscular Volume 89.2 fL (80.0-98.0); NRBC Abs Auto 0.000 X10*3/uL (0.0-0.012); NRBC Pct Auto 0.0 /100WBC (0.0-0.2); Platelet Count 195 X10*3/uL (160-400); Red Blood Count 4.53 X10*6/uL (4.60-5.80); White Blood Count 4.9 X10*3/uL (4.8-10.8)
[2025-03-19 13:37] LABS: Alanine Aminotransferase 21 U/L (0-40); Albumin Level 4.2 g/dL (3.5-5.0); Alkaline Phosphatase 65 U/L (39-117); Anion Gap 13 (12-20); Aspartate Amino Transferase 22 U/L (5-37); Blood Urea Nitrogen 25 mg/dL (9-16); Calcium 8.6 mg/dL (8.4-10.2); Carbon Dioxide 25 mmol/L (22-29); Chloride 105 mmol/L (96-108); Estimated Glomerular Filt Rate 54; Potassium 4.1 mmol/L (3.3-5.1); Sodium 139 mmol/L (135-145); Total Protein 6.5 g/dL (6.5-8.0)
== END 2025-03-19 09:34 | disposition home or self-care (01) ==
LOC: HO.HMGCLDS 09:33
PROVIDERS: PCP Nurse Practitioner Family; Visit Provider Nurse Practitioner
DX: Z01.818 Encounter for other preprocedural examination (principal)
CPT/HCPCS: 36415; 80053; 85025

== ENCOUNTER 2025-06-04 09:47 | Outpatient (REF) | payer OTHER, SELFPAY ==
[2025-06-04 13:22] LABS: Alanine Aminotransferase 23 U/L (0-40); Albumin Level 4.1 g/dL (3.5-5.0); Alkaline Phosphatase 70 U/L (39-117); Anion Gap 7 (12-20); Aspartate Amino Transferase 23 U/L (5-37); Blood Urea Nitrogen 20 mg/dL (9-16); Calcium 8.8 mg/dL (8.4-10.2); Carbon Dioxide 31 mmol/L (22-29); Chloride 106 mmol/L (96-108); Estimated Glomerular Filt Rate > 60; Potassium 3.8 mmol/L (3.3-5.1); Sodium 140 mmol/L (135-145); Total Protein 6.4 g/dL (6.5-8.0)
== END 2025-06-04 09:48 | disposition home or self-care (01) ==
LOC: HO.HMGCLDS 09:47
PROVIDERS: PCP Nurse Practitioner Family; Visit Provider Nurse Practitioner Family
DX: R94.4 Abnormal results of kidney function studies (principal); Z12.5 Encounter for screening for malignant neoplasm of prostate
CPT/HCPCS: 36415; 80053; 84153

== ENCOUNTER 2025-06-06 10:57 | Outpatient (AMB) | payer OTHER, SELFPAY ==
[2025-06-06 11:02] VITALS: BP 128/86; PULSE 77; O2SAT 97; BMI 26.1
--- NOTE | 2025-06-06 11:02 | A.OFFPC_ITS ---
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 He reports doing well and denies any chest pain, shortness of breath, abdominal pain, hematochezia, constipation, diarrhea, or urinary symptoms. His prostate- specific antigen (PSA) screen is up to date. Health Maintenance The patient will undergo laboratory testing in the near future. The patient is scheduled for a colon screening this month. The patient has declined all offered vaccinations at this time. Social History Review of Systems - Constitutional: Reports feeling well. - Cardiovascular: Denies chest pain. - Respiratory: Denies shortness of breat h. - Gastrointestinal: Denies abdominal yancy n, hematochezia, constipation, or d iarrhea. - Genitourinary: Denies urinary symptoms . Physical Exam General: Cooperative, healthy appearing, comfortable, no acute distress and well developed Orientation: Patient oriented x3 Limitations: No limitations Head: Normal to inspection Ears: Hearing grossly normal bilaterally Nose: Normal external nose present Face and sinus: Normal facial exam Eyes: Appearance normal, both eyes and all related structures Neck: Normal visual inspection and Yes full ROM Respiratory: Normal respiratory effort and able to speak in complete sentences. Clear to auscultation bilaterally Cardiovascular: Regular rate and rhythm. Normal S1 and S2 GI: Normal to inspection. Soft to palpation and nontender : Testicles without masses/lesions and no hernias appreciated. Denies any urinary symptoms Skin: No rashes or lesions noted Neuro: Patient oriented x3 Extremities: Normal to inspection Results Plan Discussion Notes I advised the patient that his physical exam was benign. We discussed the plan for him to have labs drawn in the near future and to proceed with his colon screening scheduled for this month. I also discussed vaccinations, which he declined. Encouraged continuous hydration Patient Instructions - Please proceed with getting your lab w ork done soon. - Make sure to attend your appointment f or a colon screening this month. - You chose to decline all vaccines toda y. Please let us know if you change your mind in the future. [facility] Medical History Screening PSA (prostate specific antigen) Screening for colon cancer History of COVID-19 ADD (attention deficit disorder) Bipolar 1 disorder Surgical History History of ear surgery H/O bilateral inguinal hernia repair H/O colonoscopy Family History Father Mental health disorder Social History Housing: Apartment Patient Tobacco Use Status: Never used Tobacco e-Cigarette/Vaping Use: Never Used Second Hand Smoke Exposure: No service: No Current occupational status: employed Current occupation: [email or web address] Current occupational exposures/hazards: No Cognitive needs: No Hearing needs: No Vision needs: No Questionnaire PHQ-9 Over the last 2 weeks, how often have you been bothered by any of the following problems? 1. Little interest or pleasure in doing things: not at all 2. Feeling down, depressed, or hopeless: not at all 3. Trouble falling or staying asleep, or sleeping too much: not at all 4. Feeling tired or having little energy: not at all 5. Poor appetite or overeating: not at all 6. Feeling bad about yourself - or that you are a failure or have let yourself or your family down: not at all 7. Trouble concentrating on things, such as reading the newspaper or watching television: not at all 8. Moving or speaking so slowly that other people could have noticed. Or the opposite - being so fidgety or restless that you have been moving around a lot more than usual: not at all 9. Thoughts that you would be better off or of hurting yourself in some way: not at all Total score: 0 Depression Screening Interpretation: Negative Depression Screening Done: Yes 18518 - PHQ-9 Billing: Patient declined-do not bill Source: Developed by Drs. Shad Oakes, Ariana Aquino, Rafi Bird and colleagues, with an educational bing from [employer]. Thrive Questionnaire Date Thrive assessed: 06/06/25 I am a: Patient GARRETT-7 AMB Questionnaire GARRETT-7 Date GARRETT - 7 assessed: 06/06/25 Feeling nervous, anxious, or on edge: 0 = Not at all Not being able to stop or control worryin = Not at all Worrying too much about different things: 0 = Not at all Trouble relaxin = Not at all Being so restless that it is hard to sit still: 0 = Not at all Becoming easily annoyed or irritable: 0 = Not at all Feeling afraid as if something awful might happen: 0 = Not at all Total GARRETT-7 score (0-4 normal; 5-9 mild; 10-14 moderate; 15-21 severe): 0 Source: Developed by Drs. Shad Oakes, Ariana Aquino, Rafi Bird and colleagues, with an educational bing from [employer]. GARRETT-7 Assessment Billing GARRETT-7 Assessment Tool: GARRETT-7 Assessment 13799 Physical exam (Primary Care) Vital Signs: Last Vital Signs Pulse 77 06/06/25 11:02 BP 128/86 06/06/25 11:02 Pulse Ox 97 06/06/25 11:02 Oxygen Delivery Method Room Air 06/06/25 11:02 BMI result Body Mass Index 26.1 Tobacco/Smoking Status: Tobacco use Status Tobacco use date assessed 06/06/25 06/06/25 11:08 Patient Tobacco Use Status Never used Tobacco 06/06/25 11:08 e-Cigarette/Vaping Use Never Used 06/06/25 11:08 PHQ-9: PHQ-9 Score PHQ-9: Total score 0 06/06/25 11:08 Depression Screening Interpretation: Negative Thrive Assessment: Date of Thrive Assessment Date Thrive assessed 06/06/25 06/06/25 11:08 Coding Level of Care Code Est Pt Prev Care 40-64y(16035) Diagnoses Physical exam Z00.00 Additional Codes GARRETT-7 Assessment Billing - GARRETT-7 Assessment Tool: GARRETT-7 Assessment 00757 ([id number]) Assessment & Plan Assessment & Plan (1) Physical exam: Code(s): Z00.00 - Encounter for general adult medical examination without abnormal f indings Category: Medical Plan . Orders: Orders Complete Blood Count Auto Diff Today Z00.00 - Encounter for general adult medical examination without abnormal findings UA CC w/rflx Micro + Cult Today Z00.00 - Encounter for general adult medical examination without abnormal findings Lipid Panel Today Z00.00 - Encounter for general adult medical examination without abnormal findings TSH reflex Free T4 Today Z00.00 - Encounter for general adult medical examination without abnormal findings
== END 2025-06-06 11:35 | disposition home or self-care (01) ==
LOC: HO.HMCC 10:57
PROVIDERS: PCP Nurse Practitioner Family; Visit Provider Nurse Practitioner Family
DX: Z00.00 Encounter for general adult medical examination without abnormal findings (principal)

== ENCOUNTER → 2025-06-06 10:57 | Outpatient (BNVA) | payer OTHER, SELFPAY | PROVIDERS: PCP Nurse Practitioner Family; Visit Provider Nurse Practitioner Family | DX: Z00.00 Encounter for general adult medical examination without abnormal findings (principal); N50.89 Other specified disorders of the male genital organs | CPT/HCPCS: 96127; 99396 ==

== ENCOUNTER 2025-06-13 08:50 | Day surgery (SDC) | payer OTHER, SELFPAY ==
[2025-06-11 14:15] VITALS: BMI 25.1
[2025-06-13 09:33] VITALS: BMI 25.3
[2025-06-13 09:57] VITALS: BP 108/72; PULSE 56; RESP 16; TEMP 36.2; O2SAT 98
[2025-06-13] MEDS: Lactated Ringers 1,000 ML 100 ML IVCONT (09:59)
--- NOTE | 2025-06-13 10:07 | P.HPSUR_ITS ---
Pre-Procedural Eval Section A - 24 Hr Update-Section A only Date of Service: 06/13/25 Section B - Complete if H&P > 30 days Chief Complaint: screening Relevant Family History (Specify if Yes): No Relevant Social History: None Present Medications: see Short Stay Collaborative assessment Medical History: Significant History (Attention deficit disorder/bipolar disorder Impotence Contact dermatitis ) History of Previous Operations: Relevant previous surgery/procedure and date(s) (bilateral inguinal hernia left knee cartiledge repair Wound debridment rt ear) Allergies: Allergies Allergy/AdvReac Type Severity Reaction Status Date / Time No Known Allergies Allergy Verified 06/06/25 11:04 Review of Systems Sugical H&P ROS: Negative: Constitution, Cardiovascular, Respiratory, Neurological, Psychiatric, Hem-Onc, Allergic/Immunologic, Gastrointestinal, Sasha tourinary, Musculoskeletal, Integumentary, Endocrine and Eyes/Ears/Nose/Throat Exam Surgical H&P Exam: Normal: HEENT, Normal: Heart, Normal: Lungs, Normal: Extremities, Normal: Abdomen, Normal: Skin and Normal: Neurological Plan Diagnosis/Plan: Unchanged I have reviewed the history and physical and performed a pertinent physical examination on my patient. No changes have occurred unless specified. Time Spent With Patient Time: Total time managing care of this patient today ____ minutes.
--- NOTE | 2025-06-13 10:42 | HO.ANESPROP2 ---
Documented by User: Jessica Lorenz NP 06/11/25 10:18 HPI - Anesthesia Eval Consult details Narrative: 65 yr old male for colonoscopy PMF Active Problems Active Problems: All Active Problems Screening PSA (prostate specific antigen) (Acute) Decreased GFR (Acute) Transfusion of blood product declined due to holiness reason (Acute) MCL sprain of left knee (Acute) Bilateral hydrocele (Acute) Internal derangement of left knee (Acute) Knee pain, left (Acute) Knee MCL sprain (Acute) Tinea (Acute) Scrotal swelling (Acute) Erectile dysfunction (Acute) Cough (Acute) Physical exam (Acute) Impotence (Acute) Contact dermatitis (Acute) Pre-op examination (Acute) Bipolar 1 disorder (Acute) Anxiety with depression (Acute) Past Medical History Medical History Screening PSA (prostate specific antigen) Screening for colon cancer History of COVID-19 ADD (attention deficit disorder) Bipolar 1 disorder Family History Family History Father Mental health disorder Surgical History Surgical History History of ear surgery H/O bilateral inguinal hernia repair H/O colonoscopy Social History Social History Housing: Apartment Are you a primary home care coordinator to a significant other at home: No Do you presently have visiting nurse or other home services: No Patient Tobacco Use Status: Never used Tobacco e-Cigarette/Vaping Use: Never Used Second Hand Smoke Exposure: No Use of substances other than those prescribed or required for medical reasons: No Have you been hit, kicked, punched, or otherwise hurt by someone within the past year? If so, by whom?: No Are you DNR?: No Advance Directives: No Advance Directives Information Provided: Yes Advance Directives on File: No service: No Current occupational status: employed Current occupation: [employer] Current occupational exposures/hazards: No Cognitive needs: No Hearing needs: No Vision needs: No Meds Allergies Allergy/AdvReac Type Severity Reaction Status Date / Time No Known Allergies Allergy Verified 06/06/25 11:04 Home Medications ?Medication ?Instructions ?Recorded ?Confirmed ?Last Taken ?Type bupropion HCl 100 mg tablet,12 hr 100 mg PO QAM 08/01/21 06/11/25 Unknown History sustained-release lamotrigine 200 mg tablet 200 mg PO DAILY 08/01/21 06/11/25 Unknown History quetiapine 200 mg tablet 200 mg PO DAILY 04/16/22 06/11/25 Unknown History Exam Pertinent Lab Results Pertinent Lab Results: Laboratory Tests 03/19/25 06/04/25 09:37 09:50 WBC 4.9 RBC 4.53 L Hgb 13.9 L Hct 40.4 L Plt Count 195 Sodium 140 Potassium 3.8 Chloride 106 Carbon Dioxide 31 H BUN 20 H Creatinine 1.20 Documented by User: Joann Tanner DO 06/13/25 10:43 PMFSH Past Medical History Medical History Screening PSA (prostate specific antigen) Screening for colon cancer History of COVID-19 ADD (attention deficit disorder) Bipolar 1 disorder Family History Family History Father Mental health disorder Family history of problems with anesthesia: No Surgical History Surgical History History of ear surgery H/O bilateral inguinal hernia repair H/O colonoscopy History of Problems with Anesthesia: No Social History Social History Housing: Apartment Are you a primary home care coordinator to a significant other at home: No Do you presently have visiting nurse or other home services: No Patient Tobacco Use Status: Never used Tobacco e-Cigarette/Vaping Use: Never Used Second Hand Smoke Exposure: No Use of substances other than those prescribed or required for medical reasons: No Have you been hit, kicked, punched, or otherwise hurt by someone within the past year? If so, by whom?: No Are you DNR?: No Advance Directives: No Advance Directives Information Provided: Yes Advance Directives on File: No service: No Current occupational status: employed Current occupation: [employer] Current occupational exposures/hazards: No Cognitive needs: No Hearing needs: No Vision needs: No Meds Allergies Allergy/AdvReac Type Severity Reaction Status Date / Time No Known Allergies Allergy Verified 06/06/25 11:04 Home Medications ?Medication ?Instructions ?Recorded ?Confirmed ?Last Taken ?Type bupropion HCl 100 mg tablet,12 hr 100 mg PO QAM 08/01/21 06/11/25 Unknown History sustained-release lamotrigine 200 mg tablet 200 mg PO DAILY 08/01/21 06/11/25 Unknown History quetiapine 200 mg tablet 200 mg PO DAILY 04/16/22 06/11/25 Unknown History Exam Exam Date and Time: 06/13/25 1040 Height,Weight and Vital Signs: Height 6 ft 1 in Weight 87 kg Vital Signs Temperature 97.2 F 06/13/25 09:57 Pulse Rate 56 06/13/25 09:57 Respiratory Rate 16 06/13/25 09:57 Blood Pressure 108/72 06/13/25 09:57 Pulse Oximetry 98 06/13/25 09:57 Oxygen Delivery Method Room Air 06/13/25 09:57 Temperature 97.2 F 06/13/25 09:57 Pulse Rate 56 06/13/25 09:57 Respiratory Rate 16 06/13/25 09:57 Blood Pressure 108/72 06/13/25 09:57 Pulse Oximetry 98 06/13/25 09:57 Oxygen Delivery Method Room Air 06/13/25 09:57 Airway Mallampati Class: I TM Dist: >3cm Neck ROM: Full Loose/Missing/Broken Teeth: No (patient denies any loose or broken teeth) Heart: S1S2 Lungs: CTAB Assessment and Plan Assessment Anesthesia Assessment: Anesthesia Plan Discussed and Chart Reviewed Final Anesthetic Review Family History of Problems with Anesthesia: No History of Problems with Anesthesia: No NPO: Yes ASA Class: II Final Preanesthetic Review: No Changes in Pt Med Stat, Meds/Allgs Chart Reviewed, Consent Obtained/Reviewed and Anes Risks/Benef Reviewed Patient Risk: Low Procedure Risk: Low Anesthetic Plan Anesthetic Plan: MAC: and Agree w/ Assess. and Plan Disposition: Standard PACU
--- NOTE | 2025-06-13 11:30 | HO.OPN-COLON ---
Colonoscopy Operative Note Operative Note Date of Service: 06/13/25 Narrative: Operative Information Procedure Description: Colonoscopy Indication: screening Anesthesia: MAC COLONOSCOPY Instrument: Olympus variable stiffness pediatric scope 190L Colonoscopy Monitoring: Vital signs and clinical assessment, continuous EKG monitoring, Pulse oximetry, Carbon Dioxide monitoring and blood pressure monitoring were done throughout the procedure. Colon withdrawal time was 30 minutes. Procedure: The patient was placed in the left lateral decubitis position and pre-procedure medications were administered. After a digital rectal examination of the ano-rectum, the video colonoscope was inserted into the rectum and advanced through the colon to the cecum/TI. The colonoscope was slowly withdrawn in a retrograde panoramic fashion and the colon mucosa was carefully examined including a retroflexed view of the rectum. Findings and interventions are described below. Procedure Difficulty: moderate, pressure applied Findings: Terminal Ileum-normal Cecum:normal Ascending Colon: laterla spreading granular lesion noted in mid ascending area about 10-12 mm in diameter, lifted with eleview and then removed with cold snare, with x 2 clips and nexpowder Transverse Colon -normal Descending Colon:normal Sigmoid Colon: 10 mm sessile polyp removed with cold snare Rectum: Retroflexion with small internal hemorrhoids seen, grade I, 10-12 mm lateral spreading granular type polyp lesion, lifted with eleview and removed with cold snare and then sprayed with nexpowder Anorectum - normal Intervention: cold snare, with eleview injection, clips, and nexpowder Colon preparation: [place] Bowel Preparation Scale Right colon; 2 Transverse colon: 2 Left colon; 2 (0 = Unprepared colon segment with mucosa not seen due to solid stool that cannot be cleared. 1 = Portion of mucosa of the colon segment seen, but other areas of the colon segment not well seen due to staining, residual stool and/or opaque liquid. 2 = Minor amount of residual staining, small fragments of stool and/or opaque liquid, but mucosa of colon segment seen well. 3 = Entire mucosa of colon segment seen well with no residual staining, small fragments of stool or opaque liquid) Impression and Post Procedure Diagnosis: colon polyps x3 internal hemorrhoids Plan: High fiber diet leaflet Avoid straining at stool, epsom salts and sitz bath, anusol supps or cream Repeat Colonoscopy in 2-3 years due to subtle polyps or earlier if clinically indicated Above findings were reviewed with the patient and relevant handouts were provided if indicated.
[2025-06-13 11:33] VITALS: BP 124/82; PULSE 57; RESP 15; TEMP 36.6; O2SAT 97
[2025-06-13 11:48] VITALS: BP 126/78; PULSE 60; RESP 16; O2SAT 98
[2025-06-13 12:03] VITALS: BP 126/78; PULSE 61; RESP 20; TEMP 36.6; O2SAT 96
== END 2025-06-13 12:35 | disposition home or self-care (01) ==
PROVIDERS: PCP Nurse Practitioner Family; Visit Provider Internal Medicine Gastroenterology
PROC: 0DJD8ZZ Inspection of Lower Intestinal Tract, Via Natural or Artificial Opening Endoscopic (ICD-10-PCS; CPT 45378; principal; 2025-06-13 11:00)
DX: Z12.11 Encounter for screening for malignant neoplasm of colon (principal); K64.0 First degree hemorrhoids; D12.2 Benign neoplasm of ascending colon; D3A.026 Benign carcinoid tumor of the rectum; D3A.025 Benign carcinoid tumor of the sigmoid colon
CPT/HCPCS: 45385; 45381; 45382; 88305; J2003; J2704

== ENCOUNTER → 2025-06-13 08:50 | Outpatient (BNV) | payer OTHER, SELFPAY | PROVIDERS: PCP Nurse Practitioner Family; Visit Provider Internal Medicine Gastroenterology | DX: Z12.11 Encounter for screening for malignant neoplasm of colon (principal); D12.2 Benign neoplasm of ascending colon; D12.8 Benign neoplasm of rectum; D12.5 Benign neoplasm of sigmoid colon; K64.0 First degree hemorrhoids | CPT/HCPCS: 45381; 45385 ==